=== PATIENT | male | born 1990 | race Caucasian/White ===

== ENCOUNTER 2018-05-18 12:45 | Emergency (ER) | payer SELFPAY ==
[~2018-05-18] VITALS: Ht 175.3 cm; Wt 147.4 kg
[2018-05-18] MEDS ORDERED: ORPHENADRINE CITRATE 30 MG/ML VIAL IM ONE (13:15)
[2018-05-18] MEDS ORDERED: KETOROLAC TROMETHAMINE 60 MG/2 ML VIAL IM ONE (13:30)
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
== END 2018-05-18 18:51 | disposition left against medical advice (07) ==
LOC: ER 12:45
DX: S00.83XA Contusion of other part of head, initial encounter (principal); M54.2 Cervicalgia; R42 Dizziness and giddiness; S50.812A Abrasion of left forearm, initial encounter; S50.811A Abrasion of right forearm, initial encounter; S30.810A Abrasion of lower back and pelvis, initial encounter; V28.4XXA Motorcycle driver injured in noncollision transport accident in traffic accident, initial encounter; Y92.488 Other paved roadways as the place of occurrence of the external cause
CPT/HCPCS: 70450; 71046; 72125; 99283; J1885; J2360

== ENCOUNTER 2020-08-22 12:58 | Emergency (ER) | payer SELFPAY ==
[~2020-08-22] VITALS: Ht 175.3 cm; Wt 147.4 kg
[2020-08-22] MEDS ORDERED: VENTOLIN HFA18 GM INH (14:42)
[2020-08-22] MEDS ORDERED: AZITHROMYCIN250 MG PO (14:42)
[2020-08-22] MEDS ORDERED: PREDNISONE20 MG PO (14:42)
== END 2020-08-22 14:48 | disposition home or self-care (01) ==
LOC: ER 13:29
DX: J40 Bronchitis, not specified as acute or chronic (principal); R05 Cough; R06.00 Dyspnea, unspecified; F17.210 Nicotine dependence, cigarettes, uncomplicated
CPT/HCPCS: 71045; 99283

== ENCOUNTER → 2021-02-09 | Outpatient (CLI) | payer BC ==
[~2021-02-09] MED LIST: AZITHROMYCIN250 MG PO; PREDNISONE20 MG PO; VENTOLIN HFA18 GM INH
== END ==
LOC: SLEEP 19:33
PROVIDERS: ATTEND Internal Medicine
DX: G47.33 Obstructive sleep apnea (adult) (pediatric) (principal); E66.9 Obesity, unspecified; Z20.822 Contact with and (suspected) exposure to COVID-19
CPT/HCPCS: 95811; U0002